=== PATIENT | male | born 1980 | race American Indian/Alaskan Native ===

== ENCOUNTER 2018-09-19 21:23 | Emergency (ER) | payer OTHER ==
[2018-09-19 21:28] VITALS: BP 147/88
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
== END 2018-09-20 04:00 | disposition home or self-care (01) ==
LOC: ED 21:23
DX: S83.91XA Sprain of unspecified site of right knee, initial encounter (principal); S66.119A Strain of flexor muscle, fascia and tendon of unspecified finger at wrist and hand level, initial encounter; M62.838 Other muscle spasm; F17.200 Nicotine dependence, unspecified, uncomplicated; F12.10 Cannabis abuse, uncomplicated; V47.5XXA Car driver injured in collision with fixed or stationary object in traffic accident, initial encounter; Y93.89 Activity, other specified; Y92.410 Unspecified street and highway as the place of occurrence of the external cause; Y99.8 Other external cause status
CPT/HCPCS: 72040

== ENCOUNTER 2020-08-05 09:11 | Emergency (ER) | payer OTHER ==
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
--- NOTE | 2020-08-05 10:48 | XRay Report ---
Left knee 3 views INDICATION: Sprain FINDINGS: There is tricompartmental degenerative osteoarthrosis. Significant joint space narrowing is seen in the patellofemoral joint medial joint compartment. Calcification is seen in the lateral aspe ct of the knee adjacent to the distal lateral femoral metaphysis. This may represent intramuscular ca lcification or even prior injury, nonspecific. This was not seen on prior examination in 2019. Signer Name: José Castaneda MD Signed: 08/05/2020 10:43 AM Workstation Name: [id number]
[2020-08-05 11:14] VITALS: BP 138/90
== END 2020-08-05 12:31 | disposition home or self-care (01) ==
LOC: ED 09:11
DX: S29.012A Strain of muscle and tendon of back wall of thorax, initial encounter (principal); S80.02XA Contusion of left knee, initial encounter; F17.200 Nicotine dependence, unspecified, uncomplicated; F12.90 Cannabis use, unspecified, uncomplicated; Z79.899 Other long term (current) drug therapy; V49.59XA Passenger injured in collision with other motor vehicles in traffic accident, initial encounter; Y92.410 Unspecified street and highway as the place of occurrence of the external cause; Y93.89 Activity, other specified; Y99.8 Other external cause status